=== PATIENT | female | born 1960 | race Native Hawaiian/Other Pacific Islander ===

== ENCOUNTER 2023-10-13 13:32 | Outpatient (REF) | payer OTHER, SELFPAY ==
--- NOTE | ~2023-10-13 | MM_ITS ---
EXAMINATION: MM SCREENING DIGITAL BREAST TOMOSYNTHESIS, BILATERAL CLINICAL INFORMATION: Screening. Asymptomatic. The patient is status post right breast surgery for benign disease. COMPARISON: Mammography: There are no prior mammograms available for comparison. TECHNIQUE: Digital breast tomosynthesis is performed in both the craniocaudal and mediolateral oblique views along with computer-aided detection (CAD). Synthesized 2D images are generated from the tomosynthesis. FINDINGS: The breasts are heterogeneously dense, which may obscure small masses (ACR BI-RADS breast composition Category c). There are no significant masses, abnormal calcifications, or other abnormalities. Postsurgical changes are present in the right breast. MM/MM tomosynthesis screening BI IMPRESSION: No mammographic evidence of malignancy. ASSESSMENT: BI-RADS BI-RADS 2 - Benign Findings RECOMMENDATION: Routine annual mammography screening. 1 year F/U This examination should not preclude the clinical evaluation of a suspicious palpable abnormality. This patient's information was entered into a reminder system with a target due date for their next mammogram.
== END 2023-10-13 13:33 | disposition home or self-care (01) ==
LOC: HO.MAMMO 13:32
PROVIDERS: PCP Internal Medicine; Visit Provider Internal Medicine
DX: Z12.31 Encounter for screening mammogram for malignant neoplasm of breast (principal)
CPT/HCPCS: 77063; 77067

== ENCOUNTER → 2023-10-13 14:00 | Outpatient (BNV) | payer OTHER, SELFPAY | PROVIDERS: PCP Internal Medicine; Visit Provider Radiology Diagnostic Radiology | DX: Z12.31 Encounter for screening mammogram for malignant neoplasm of breast (principal) | CPT/HCPCS: 77063; 77067 ==

== ENCOUNTER 2023-10-30 08:15 | Outpatient (REF) | payer OTHER, SELFPAY ==
[2023-10-30 08:49] LABS: MANUAL DIFF FLAG NO
[2023-10-30 09:42] LABS: Basophils Percent Auto 0.8 % (0-2); Eosinophils Absolute Auto 0.2 X10*3/uL (0.0-0.4); Eosinophils Percent Auto 3.1 % (0-4); Hematocrit 41.3 % (37.0-47.0); Hemoglobin 13.7 g/dl (12.0-16.0); Imm Gran Abs Auto 0.01 X10*3/uL (0.00-0.03); Imm Gran Pct Auto 0.2 % (0.0-0.4); Lymphocytes Absolute Auto 2.5 X10*3/uL (1.2-4.9); Lymphocytes Percent Auto 48.4 % (20-40); Mean Corpuscular HGB Conc 33.2 g/dl (31.0-35.0); Mean Corpuscular Hemoglobin 31.1 pg (27.0-33.0); Mean Corpuscular Volume 93.9 fL (80.0-98.0); Monocytes Absolute Auto 0.6 X10*3/uL (0.1-1.2); Neutrophils Absolute Auto 1.9 x10*3/uL (2.0-8.3); Neutrophils Percent Auto 36.5 % (45-73); Platelet Count 212 X10*3/uL (160-400); Red Cell Distribution Width 12.8 % (11.0-16.0); White Blood Count 5.2 X10*3/uL (4.8-10.8)
[2023-10-30 10:02] LABS: Carbamazepine Tegretol 6.6 mcg/mL (5.0-12.0)
[2023-10-30 10:11] LABS: Alanine Aminotransferase 24 U/L (0-31); Albumin Level 4.2 g/dL (3.5-5.0); Alkaline Phosphatase 87 U/L (39-117); Anion Gap 12 (12-20); Aspartate Amino Transferase 23 U/L (5-31); Bilirubin Total 0.2 mg/dL (0.0-1.0); Blood Urea Nitrogen 13 mg/dL (9-16); Calcium 8.9 mg/dL (8.4-10.2); Carbon Dioxide 24 mmol/L (22-29); Chloride 111 mmol/L (96-108); Cholesterol 143 mg/dL (<200); Estimated Glomerular Filt Rate > 60; Glucose Random 93 mg/dL (60-115); HDL Cholesterol 37 mg/dL (>40); LDL Cholesterol Calculated 74 mg/dL (<100); Potassium 4.1 mmol/L (3.3-5.1); Sodium 143 mmol/L (135-145); Total Protein 7.7 g/dL (6.5-8.0); Triglycerides 161 mg/dL (<150)
[2023-10-30 10:26] LABS: Thyroid Stimulating Hormone 1.03 uIU/mL (0.32-4.0)
== END 2023-10-30 08:16 | disposition home or self-care (01) ==
LOC: HO.LAB 08:15
PROVIDERS: PCP Internal Medicine; Visit Provider Internal Medicine
DX: E78.00 Pure hypercholesterolemia, unspecified (principal); G25.2 Other specified forms of tremor; G40.109 Localization-related (focal) (partial) symptomatic epilepsy and epileptic syndromes with simple partial seizures, not intractable, without status epilepticus; Z86.010 Personal history of colon polyps; Z86.73 Personal history of transient ischemic attack (TIA), and cerebral infarction without residual deficits
CPT/HCPCS: 36415; 80053; 80061; 80156; 84443; 85025

== ENCOUNTER 2024-11-30 07:55 | Outpatient (REF) | payer OTHER, SELFPAY | END 2024-11-30 07:56 | disposition home or self-care (01) | LOC: HO.MAMMO 07:55 | PROVIDERS: PCP Internal Medicine; Visit Provider Internal Medicine | DX: Z12.31 Encounter for screening mammogram for malignant neoplasm of breast (principal) | CPT/HCPCS: 77063; 77067 ==

== ENCOUNTER → 2024-11-30 08:15 | Outpatient (BNV) | payer OTHER, SELFPAY | PROVIDERS: PCP Internal Medicine; Visit Provider Internal Medicine | DX: Z12.31 Encounter for screening mammogram for malignant neoplasm of breast (principal) | CPT/HCPCS: 77063; 77067 ==

== ENCOUNTER 2024-12-16 11:06 | Outpatient (REF) | payer OTHER, SELFPAY ==
[2024-12-16 13:54] LABS: MANUAL DIFF FLAG NO
[2024-12-16 13:58] LABS: Hematocrit 40.6 % (37.0-47.0); Hemoglobin 13.6 g/dl (12.0-16.0); Imm Gran Abs Auto 0.02 X10*3/uL (0.00-0.03); Imm Gran Pct Auto 0.4 % (0.0-0.4); Lymphocytes Absolute Auto 2.5 X10*3/uL (1.2-4.9); Mean Corpuscular HGB Conc 33.5 g/dl (31.0-35.0); Mean Corpuscular Hemoglobin 30.8 pg (27.0-33.0); Mean Corpuscular Volume 92.1 fL (80.0-98.0); NRBC Abs Auto 0.000 X10*3/uL (0.0-0.012); NRBC Pct Auto 0.0 /100WBC (0.0-0.2); Platelet Count 205 X10*3/uL (160-400); Red Blood Count 4.41 X10*6/uL (4.20-5.50); White Blood Count 5.2 X10*3/uL (4.8-10.8)
[2024-12-16 14:24] LABS: Alanine Aminotransferase 28 U/L (0-31); Albumin Level 4.6 g/dL (3.5-5.0); Alkaline Phosphatase 95 U/L (39-117); Anion Gap 12 (12-20); Aspartate Amino Transferase 41 U/L (5-31); Blood Urea Nitrogen 16 mg/dL (9-16); Calcium 9.0 mg/dL (8.4-10.2); Carbon Dioxide 21 mmol/L (22-29); Chloride 111 mmol/L (96-108); Cholesterol 145 mg/dL (<200); Estimated Glomerular Filt Rate > 60; HDL Cholesterol 39 mg/dL (>40); Potassium 4.3 mmol/L (3.3-5.1); Sodium 140 mmol/L (135-145); Total Protein 8.2 g/dL (6.5-8.0); Triglycerides 168 mg/dL (<150)
[2024-12-16 14:32] LABS: Thyroid Stimulating Hormone 0.89 uIU/mL (0.32-4.0)
== END 2024-12-16 11:07 | disposition home or self-care (01) ==
LOC: HO.HMGCLDS 11:06
PROVIDERS: PCP Internal Medicine; Visit Provider Internal Medicine
DX: Z00.00 Encounter for general adult medical examination without abnormal findings (principal); G25.0 Essential tremor; G40.109 Localization-related (focal) (partial) symptomatic epilepsy and epileptic syndromes with simple partial seizures, not intractable, without status epilepticus; E78.00 Pure hypercholesterolemia, unspecified
CPT/HCPCS: 36415; 80053; 80061; 84443; 85025

== ENCOUNTER 2025-01-01 09:35 | Emergency (ER) | payer OTHER, SELFPAY ==
[2025-01-01] VITALS (7 sets, daily range): BP systolic 97–151; BP diastolic 56–71; PULSE 62–97; RESP 12–16; TEMP 36.5–36.9; O2SAT 94–98; BMI 27.1
--- NOTE | ~2025-01-01 | CT_ITS ---
EXAMINATION: CT ANGIOGRAM HEAD AND NECK CLINICAL INFORMATION: Headache,? Aneurysm rupture . History of left paraclinoid aneurysm clipping COMPARISON: None available. TECHNIQUE: Noncontrast axial imaging of the head was performed. This was followed by test bolus sequences and head and neck intravenous bolus administration mL of . Helical imaging was performed in the axial plane from the aortic arch to the skull vertex. A [address] head was also obtained. The data was processed at the medical technologist blood bank's workstation for generation of MIP sequences. Angled MIPs and volume rendered reformatted images were also generated at an offline 3D workstation. Stenoses are assessed in accordance with NASCET criteria unless otherwise indicated. This CT examination was performed using dose optimization techniques as appropriate, variously including the following: *Automated exposure control *Adjustment of mA and/or kV according to patient size (this includes techniques or standardized protocols for targeted exams where dose is matched to indication/reason for exam; i.e. extremities or head) *Use of iterative reconstruction technique FINDINGS: NONCONTRAST HEAD CT: There are 2 left paraclinoid aneurysm clips in place. There is associated streak artifact. There is encephalomalacia in the left anterior temporal lobe extending into the left subinsular region and involving the anterior left frontal operculum. There has been a left pterional craniotomy. Mild ex vacuo dilatation of the left lateral ventricle. Ventricles, sulci, and cisterns are otherwise normal in size and configuration for patient age. No hydrocephalus. No midline shift. There is no evidence of intracranial hemorrhage or extra-axial fluid collection. There is no mass effect, or edema. No CT evidence of acute territorial infarct. Globes and orbital contents image normally. No extracranial soft tissue abnormalities. The paranasal sinuses, mastoid air cells, and tympanic cavities are normally aerated. No suspicious bony abnormalities. Severe degenerative changes in the left TM joint noted. NECK CTA: Motion artifact in the mid aspect of the scan severely limits interpretation of the distal common carotid arteries, and proximal ICAs. -AORTIC ARCH: Normal in caliber. Mild atheromatous calcification. Three-vessel branching pattern. -GREAT VESSEL ORIGINS: Widely patent. No stenosis. -RIGHT COMMON CAROTID ARTERY: The proximal and mid aspects are normal in course and caliber. Cannot evaluate the distal aspect due to motion. -CERVICAL RIGHT INTERNAL CAROTID ARTERY: Cannot evaluate the carotid bulb or bifurcation due to motion artifact. The distal ICA is normal in caliber into the skull base. -LEFT COMMON CAROTID ARTERY: The proximal and mid aspects are normal in course and caliber. Cannot evaluate the distal aspect due to motion. -CERVICAL LEFT INTERNAL CAROTID ARTERY: Cannot evaluate the carotid bulb bifurcation due to motion artifact. Suspect there is high-grade stenosis of the distal aspect of the ICA is small narrowed, likely secondary to adaptive narrowing. -CERVICAL RIGHT VERTEBRAL ARTERY: Codominant. Normal in course and caliber into the skull base. -CERVICAL LEFT VERTEBRAL ARTERY: Codominant. Normal in course and caliber into the skull base. OTHER, SOFT TISSUES: -No lymphadenopathy or mass. No abnormal fluid collection or soft tissue swelling. -Globally enlarged thyroid with a right isthmus nodule measuring 2.0 x 1.5 cm in axial plane. -Imaged superior mediastinal structures normal. -Imaged lung apices clear. CTA OF THE BRAIN: -INTRACRANIAL INTERNAL CAROTID ARTERIES: The right is normal. There is mild atheromatous plaque. There is no right stenosis stenosis. The left is diminutive, likely secondary to a more proximal stenosis. There is atheromatous plaque in the carotid siphon, and cannot evaluate the left carotid terminus due to streak artifact from aneurysm clips. -RIGHT ANTERIOR CEREBRAL ARTERY: Normal A1 segment.. Normal arborization of the distal segments. -LEFT ANTERIOR CEREBRAL ARTERY: Normal A1 segment.. Normal arborization of the distal segments. -ANTERIOR COMMUNICATING ARTERY: Normal. -RIGHT MIDDLE CEREBRAL ARTERY: Normal M1 segment of the MCA without focal stenosis or occlusion. Normal arborization of the distal segments. -LEFT MIDDLE CEREBRAL ARTERY: Within confines of streak artifact, normal M1 segment without focal stenosis or occlusion. Cannot evaluate for residual aneurysm due to streak artifact. Normal arborization of the distal segments. -RIGHT VERTEBRAL ARTERY V4: Normal in course and caliber. Normal PICA branch. -LEFT VERTEBRAL ARTERY V4: Normal in course and caliber. Normal PICA branch. -BASILAR ARTERY: Normal without focal stenosis or occlusion. Normal appearance of the proximal superior cerebellar arteries. Normal basilar tip. -RIGHT POSTERIOR CEREBRAL ARTERY: Normal P1 segment. Normal opacification of the distal TOBACCO WETTER segments. -LEFT POSTERIOR CEREBRAL ARTERY: Normal P1 segment. Normal opacification of the distal TOBACCO WETTER segments. -POSTERIOR COMMUNICATING ARTERIES: Both are not well seen. Normal opacification of the superior sagittal, straight, transverse, and sigmoid sinuses. No venous thrombosis. No space-occupying hemorrhage or definite evolving infarct. CT/CT angio head neck IMPRESSION: NONCONTRAST HEAD CT: 1. No acute intracranial abnormalities. 2. Left paraclinoid aneurysm clips and remote left pterional craniotomy. 3. Cystic encephalomalacia in the anterior left temporal lobe, left subinsular region, and anterior left frontal operculum. CTA NECK: 1. Extremely limited in the mid aspect of the scan due to motion artifact. Cannot evaluate the distal CCAs or proximal ICAs, nor the bifurcations. Suspect there is a significant/high-grade stenosis in the LEFT ICA at the origin as there is adaptive narrowing of the distal ICA. 2. The proximal and mid CCAs are patent. 3. The distal right ICA is patent into the skull base. 4. Right isthmus thyroid nodule measuring 2.0 x 1.5 cm, with global thyroid enlargement. CTA HEAD: 1. Limited due to streak artifact from left paraclinoid aneurysm clips. Cannot evaluate the left MCA M1 segment, nor the left carotid terminus. The intracranial left ICA is diminutive in appearance, possibly due to a more proximal stenosis as discussed above. 2. Allowing for artifact, the left MCA and bifurcation appear grossly patent. 3. Remainder of the examination demonstrates no evidence of high-grade stenosis, occlusion, aneurysm, or dissection of the major intracranial arterial vasculature. 4. Major cortical and dural venous sinuses are patent. Electronically signed by: Slava Carmichael MD 01/01/2025 01:02 PM EDT
--- NOTE | 2025-01-01 10:18 | ECG_ITS ---
Test Reason : HEADACHE Blood Pressure : */* mmHG Vent. Rate : 80 BPM Atrial Rate : 80 BPM P-R Int : 202 ms QRS Dur : 66 ms QT Int : 392 ms P-R-T Axes : 61 -21 15 degrees QTcB Int : 452 ms Normal sinus rhythm Possible Left atrial enlargement Borderline ECG No previous ECGs available Referred By: Marco Cruz Electronically Signed By: Perez Andino
[2025-01-01 10:55] LABS: MANUAL DIFF FLAG NO
[2025-01-01 10:56] LABS: Hematocrit 41.7 % (37.0-47.0); Hemoglobin 13.7 g/dl (12.0-16.0); Imm Gran Abs Auto 0.02 X10*3/uL (0.00-0.03); Imm Gran Pct Auto 0.4 % (0.0-0.4); Lymphocytes Absolute Auto 2.0 X10*3/uL (1.2-4.9); Mean Corpuscular HGB Conc 32.9 g/dl (31.0-35.0); Mean Corpuscular Hemoglobin 30.6 pg (27.0-33.0); Mean Corpuscular Volume 93.3 fL (80.0-98.0); NRBC Abs Auto 0.000 X10*3/uL (0.0-0.012); NRBC Pct Auto 0.0 /100WBC (0.0-0.2); Platelet Count 191 X10*3/uL (160-400); Red Blood Count 4.47 X10*6/uL (4.20-5.50); White Blood Count 5.1 X10*3/uL (4.8-10.8)
[2025-01-01 11:03] LABS: INTERNATIONAL NORM RATIO 1.0 (0.9-1.1); Prothrombin Time 11.4 SEC (10.9-12.4)
[2025-01-01 11:05] LABS: Partial Thromboplastin Time 28.7 SEC (26.7-34.1)
--- NOTE | 2025-01-01 11:10 | ED_ITS ---
HPI - General Adult General Chief complaint: Headache Stated complaint: Headache Time Seen by Provider: 01/01/25 10:00 Source: patient Mode of arrival: ambulatory Limitations: no limitations History of Present Illness ED Provider: Marco Cruz HPI narrative: 64-year-old female history of left aneurysm rupture repair that required surgery and migraine presents to the ED for right-sided posterior ( neck) and anterior headache since this morning at 05:00. 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 patient denies any fever, chills, nausea, vomiting, or visual changes. Patient has chronic right-sided weakness since having stroke due to right-sided aneurysm rupture repair. Patient denies any chest pain shortness of breath or dizziness. Related Data Previous Rx's ?Medication ?Instructions ?Recorded oxycodone 5 mg tablet 5 mg PO TID PRN pain #9 tabs 01/01/25 Allergies Allergy/AdvReac Type Severity Reaction Status Date / Time aspirin Allergy Hives Verified 01/01/25 09:45 Review of Systems 2 Review of Systems: left-sided posterior anterior headache Yes all other systems are reviewed and are negative Physical Exam ED Vital Signs: Vital Signs - 24 hr 01/01/25 09:43 01/01/25 10:58 01/01/25 10:58 Temperature 98.0 F 98.4 F Pulse Rate 97 90 Respiratory Rate 16 15 15 Blood Pressure 151/70 H 126/65 Pulse Oximetry 97 94 Oxygen Delivery Method Room Air Room Air 01/01/25 12:30 01/01/25 13:27 01/01/25 14:07 Temperature 97.7 F Pulse Rate 77 72 65 Respiratory Rate 12 16 13 Blood Pressure 97/57 L 107/71 97/57 L Pulse Oximetry 98 94 94 Oxygen Delivery Method Room Air Room Air Room Air 01/01/25 15:03 01/01/25 15:31 Temperature 98.2 F 98.2 F Pulse Rate 62 62 Respiratory Rate 14 14 Blood Pressure 111/56 L 111/56 L Pulse Oximetry 96 96 Oxygen Delivery Method Room Air Room Air BMI result Body Mass Index 27.1 Const General: cooperative, healthy appearing, comfortable, no acute distress, well developed, alert, awake and Physically active HENOH Head: Yes normal to inspection, Yes No palpable skull fracture present, Yes normocephalic and Yes atraumatic Ears: hearing grossly normal bilaterally, external ears normal, TM's normal bilaterally, TM normal on the right, TM normal on the left, EAC's normal, mastoids normal and no periauricular adenopathy Throat: Yes posterior oropharynx normal, Yes tonsils normal and Yes uvula midline Eyes General: appearance normal, both eyes and all related structures Neck Neck: Yes normal visual inspection, Yes full ROM, Yes no lymphadenopathy, Yes no meningeal signs, Yes trachea midline, Yes supple, No anterior neck swelling and No tender Chest Chest palpation & inspection: normal inspection of the chest and normal palpation of entire chest wall Resp Effort & Inspection: normal respiratory effort and able to speak in complete sentences Auscultation: clear to auscultation bilaterally Cardio Jugular venous distension: no JVD Heart sounds: S1 normal heart sound present and S2 normal heart sound present GI Inspection: Yes normal to inspection Palpation (GI): Soft to palpation, not firm, nontender, no guarding and not rigid General: Yes no CVA tenderness Back/Spine/Pelvis Back: no CVA tenderness and No back tenderness Skin General skin exam: no rashes or lesions noted, elasticity normal and turgor normal Neuro Other: chronic right-sided weakness. Negative for facial droop, slurred speech, facial droop, or paralysis of extremities. General: no meningeal signs Extrem General: Yes normal to inspection, Yes full ROM and Yes capillary refill normal Psych Appearance: grossly normal, well kempt and not disheveled NIH Stroke Scale Internal: Initial- Upon Arrival Level of Consciousness: Alert Level of Consciousness Questions: Answers both questions correctly Level of Consciousness Commands: Performs both tasks correctly Best Gaze: Normal Visual: No visual loss Facial Palsy: Normal Motor Arm (Right): No drift Motor Arm (Left): No drift Motor Leg (Right): No drift Motor Leg (Left): No drift Limb Ataxia: Absent Sensory: Normal Best Language: No aphasia Dysarthia: Normal Extinction and Inattention: No abnormality Score: 0 Medications Administered Discontinued Medications Generic Name Dose Route Start Last Admin Trade Name Freq PRN Reason Stop Dose Admin Sodium Chloride 1,000 mls @ 999 mls/hr 01/01/25 13:12 01/01/25 15:03 Ns IV 01/01/25 14:12 Infused .Q1H1M STA Infusion Iohexol 100 ml 01/01/25 12:27 01/01/25 12:28 Iohexol 350 Mg/Ml 100 Ml Infus..Btl IV 01/01/25 12:28 70 ml ONCE ONE Administration Metoclopramide HCl 10 mg 01/01/25 10:27 01/01/25 10:58 Metoclopramide Hcl 10 Mg/2 Ml Vial IVPUSH 01/01/25 10:28 10 mg ONCE ONE Administration Morphine Sulfate 4 mg 01/01/25 10:20 01/01/25 10:58 Morphine Sulfate 4 Mg/Ml Cartridge IVPUSH 01/01/25 10:21 4 mg ONCE ONE Administration Protocol Medical Decision Making Medical Decision Making [facility] Narrative: 64-year-old female presents to the ED for right sided anterior ( parietal/frontal) and posterior ( headache_ headache that began as a 05:00 this morning without any neuro deficits. Patient denies any visual changes. Do patient has allergy to aspirin can get NSAIDs including Motrin Toradol. head CTA scan will be ordered to rule out rupture. basic labs ordered. Morphine Reglan ordered 3:00pm: Patient is sleeping comfortably in bed not in any distress. Patient feels better. Head CTA negative for bleeding aneurysm or signs of stroke. Patient has no new neuro deficits. no indication for LP or MRI. Patient had surgery and interventions at [facility]. Patient has a appointment with neurology this January 11. Patient informed to call him for earlier appointment. Not suspecting meningitis, cephalitis, temporal arteritis, glaucoma, posterior cerebellar stroke, stroke, or any other life-threatening etiology. EKG negative STEMI. patient is alert oriented x3 Differential Diagnosis Differential Diagnoses: The differential diagnosis associated with the presentation includes (Aneurysm rupture, brain bleed, stroke, GA) Admission/Observation Consideration of admission/observation: Escalation of care including admission/observation considered Lab Data [facility] Lab Attestation statement: I reviewed the patient's lab results. 01/01/25 10:49 01/01/25 10:49 Labs: Lab Results 01/01/25 01/01/25 Range/Units 10:49 14:12 WBC 5.1 (4.8-10.8) X10*3/uL RBC 4.47 (4.20-5.50) X10*6/uL Hgb 13.7 (12.0-16.0) g/dl Hct 41.7 (37.0-47.0) % MCV 93.3 (80.0-98.0) fL MCH 30.6 (27.0-33.0) pg MCHC 32.9 (31.0-35.0) g/dl RDW 13.2 (11.0-16.0) % Plt Count 191 (160-400) X10*3/uL MPV 8.7 L (9.4-12.3) fL Immature Gran % (Auto) 0.4 (0.0-0.4) % Neut % (Auto) 45.1 (45-73) % Lymph % (Auto) 39.9 (20-40) % [place] % (Auto) 11.4 H (2-11) % Eos % (Auto) 2.2 (0-4) % Baso % (Auto) 1.0 (0-2) % Lymph # (Auto) 2.0 (1.2-4.9) X10*3/uL [place] # (Auto) 0.6 (0.1-1.2) X10*3/uL Eos # (Auto) 0.1 (0.0-0.4) X10*3/uL Baso # (Auto) 0.1 (0.0-0.2) X10*3/uL Abs Immat Gran (auto) 0.02 (0.00-0.03) X10*3/uL Absolute Neuts (auto) 2.3 (2.0-8.3) x10*3/uL Absolute Nucleated RBC 0.000 (0.0-0.012) X10*3/uL Nucleated RBC % (auto) 0.0 (0.0-0.2) /100WBC PT 11.4 (10.9-12.4) SEC INR 1.0 (0.9-1.1) APTT 28.7 (26.7-34.1) SEC Sodium 144 (135-145) mmol/L Potassium 4.1 (3.3-5.1) mmol/L Chloride 109 H (96-108) mmol/L Carbon Dioxide 29 (22-29) mmol/L Anion Gap 10 L (12-20) BUN 15 (9-16) mg/dL Creatinine 0.73 (0.5-1.4) mg/dL Estim Creat Clear Calc 77.5 Estimated GFR > 60 Random Glucose 108 (60-115) mg/dL Calcium 9.7 D (8.4-10.2) mg/dL Total Bilirubin 0.2 (0.0-1.0) mg/dL AST 30 (5-31) U/L ALT 29 (0-31) U/L Alkaline Phosphatase 90 (39-117) U/L Troponin I High Sens < 2.7 10.2 D (<3.5-17.0) ng/L Total Protein 7.7 (6.5-8.0) g/dL Albumin 4.4 (3.5-5.0) g/dL Independent Interpretation I performed an independent interpretation of an: EKG (NOrmal Sinus) and CT Scan Radiology Impression Discussion of test interpretation with radiology: I have reviewed the radiologist's reading. Prescription Management I considered prescription management with: Pain Medication Discharge Plan Discharge Clinical Impression: Headache Patient Disposition: Home, Self-Care Instructions: General Headache (ED) Additional Instructions: Recommend follow-up with primary care provider and neurologist. Return to the ED immediately for severe headache, slurred speech, facial droop, nausea, vomiting, weakness, dizziness, chest pain, shortness of breath, loss of vision, neck stiffness, fever chills, or any other concerning symptoms. Continue taking Tylenol for pain relief with oxycodone. [facility] [phone], [address] [place] [address] [place] [address] Prescriptions: New oxycodone 5 mg tablet 5 mg PO TID PRN (Reason: pain) Qty: 9 0RF Rx Instructions: Partial Fill upon patient request. Referrals: Tracy Keating MD [Primary Care Provider, Internal Medicine] - 2 days Referral Note: Headache Clinical Impression: Headache Jessy Haywood MD [Physician, Neurology] - 2 days Referral Note: Headache. History of ruptured brain aneurysm. Head CTA negative for any new aneurysm. Clinical Impression: Headache Interventions: ED Discharge Assessment Last Done: 01/01/25 15:31 Discharge Date/Time: 01/01/25 15:35 Print Language: Mongolian
[2025-01-01 11:11] LABS: Alanine Aminotransferase 29 U/L (0-31); Albumin Level 4.4 g/dL (3.5-5.0); Alkaline Phosphatase 90 U/L (39-117); Anion Gap 10 (12-20); Aspartate Amino Transferase 30 U/L (5-31); Blood Urea Nitrogen 15 mg/dL (9-16); Calcium 9.7 mg/dL (8.4-10.2); Carbon Dioxide 29 mmol/L (22-29); Chloride 109 mmol/L (96-108); Creatinine Clr Calc Pharmacy 77.5; Estimated Glomerular Filt Rate > 60; Potassium 4.1 mmol/L (3.3-5.1); Sodium 144 mmol/L (135-145); Total Protein 7.7 g/dL (6.5-8.0)
[2025-01-01 11:24] LABS: Troponin-I High Sensitivity < 2.7 ng/L (<3.5-17.0)
[2025-01-01] MEDS: iohexoL 350 MG/ML 100 ML INFUS..BTL IV (12:28)
[2025-01-01 14:42] LABS: Troponin-I High Sensitivity 10.2 ng/L (<3.5-17.0)
== END 2025-01-01 15:35 | disposition home or self-care (01) ==
PROVIDERS: Physician Assistant; Emergency Provider Emergency Medicine; PCP Internal Medicine
DX: R51.9 Headache, unspecified (principal); I69.351 Hemiplegia and hemiparesis following cerebral infarction affecting right dominant side; Z79.899 Other long term (current) drug therapy
CPT/HCPCS: 36415; 70496; 70498; 80053; 84484; 85025; 85610; 85730; 93005; 96361; 96374; 96375; 99284; 99285; J2270; J2765; Q9967

== ENCOUNTER → 2025-01-01 10:18 | Outpatient (BNV) | payer OTHER, SELFPAY | PROVIDERS: Emergency Provider Emergency Medicine; PCP Internal Medicine; Visit Provider Internal Medicine Cardiovascular Disease | DX: R51.9 Headache, unspecified (principal) | CPT/HCPCS: 93010 ==

== ENCOUNTER → 2025-01-01 10:18 | Outpatient (BNV) | payer OTHER, SELFPAY | PROVIDERS: Emergency Provider Emergency Medicine; PCP Internal Medicine; Visit Provider Radiology Diagnostic Radiology | DX: I72.0 Aneurysm of carotid artery (principal) | CPT/HCPCS: 70496; 70498 ==

== ENCOUNTER 2025-01-11 14:26 | Outpatient (AMB) | payer OTHER, SELFPAY ==
--- NOTE | 2025-01-11 14:34 | MHC.OFFVIS ---
Intake Visit Reasons: ENP-Seizure Disorder, Tremors Allergies bee pollen (bee stings) Allergy (Unknown, Verified 01/10/25 12:10) Unknown aspirin Allergy (Verified 01/01/25 09:45) Hives HPI Comments Details: The patient is a 64-year-old female presenting with tremor and recurrent headaches. 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 The tremors, described as involuntary and affecting her right hand, began a year ago, differing from her post-surgical state. No syncope or loss of consciousness accompanying the tremor has been reported. The patient also describes her right hand sometimes feeling cold. She reports prior seizure activity, most prominently around five years ago, with no current seizure episodes. Her recurrent headaches have been occurring sporadically and are self-managed by rest. [facility] Medical History (Updated 01/11/25 @ 14:46 by Jessy Haywood MD) Tremor Seizure disorder Review of Systems Const Details: - Neurological: Reports headaches, tremor; Denies current seizures - Musculoskeletal: Reports trembling of the right hand - General: Reports headache Physical Exam Neuro Other: Mental Status: Alert and oriented to person, place, and time. Normal attention. Normal spontaneous speech, fluency, and comprehension. No obvious issues with mood and memory. Affect is appropriate. Cranial Nerves: CN II: Visual aguilera full to confrontation, visual acuity intact. CN III, IV, : Pupils equal, round, reactive to light and accommodation. Extraocular movements are normal. CN V: Facial sensation is normal. CN VII: Facial movements symmetrical. CN VIII: Hearing intact to bedside conversation is normal. CN IX, X: Palate elevates symmetrically. CN XI: Shoulder shrug and head turn symmetrical. CN XII: Tongue midline without atrophy or fasciculations. Motor: Bulk and tone normal in all extremities. No significant muscle weakness in arms and legs. No drift. Reflexes: Deep tendon reflexes 2+ and symmetric. Plantar response down-going bilaterally. Coordination: [id number] and [id number] testing normal. No dysmetria. Gait and Station: No obvious gait abnormality. No ataxia or instability. Extrapyramidal: Full facial expressions and blinking. No rigidity. Mild right hand resting tremor. Decreased right arm swing while walking. Speech: Normal; no dysarthria or tremor. Assessment & Plan Assessment & Plan (1) S/P cerebral aneurysm repair: Comment: CTA brain and neck at [facility] [place] in Dec 2024: s/p craniotomy, left temporal encephalomalacia, left supraclinoid area aneurysm clip artifact Code(s): Z98.890 - Other specified postprocedural states; Z86.79 - Personal history of other diseases of the circulatory system Category: Surgical (2) Migraine: Code(s): G43.909 - Migraine, unspecified, not intractable, without status migrainosus Category: Medical Qualifiers: Migraine type: migraine (< 15 days per month) without aura Status migrainosus presence: without status migrainosus Intractability: not intractable Qualified Code(s): G43.009 - Migraine without aura, not intractable, without status migrainosus (3) Seizure disorder: Code(s): G40.909 - Epilepsy, unspecified, not intractable, without status epilepticus Category: Medical Plan Impression: a: Right hand resting tremor, mild, chronic. b: Mild migraine type headaches c: Probably seizure disorder d: Remote h/o left supraclinoid cerebral aneurysm clipping with resutling left temporal encephalomalacia Rec: a; EEG b: Tylenol PRN Orders: Orders EEG electroencephalogram Today G40.909 - Epilepsy, unspecified, not intractable, without status epilepticus Coding Level of Care Code New Pt Level 5 (32652) Diagnoses S/P cerebral aneurysm repair Z98.890; Z86.79 Migraine without aura and without status migrainosus, not intractable G43.009 Migraine type: migraine (< 15 days per month) without aura Status migrainosus presence: without status migrainosus Intractability: not intractable Seizure disorder G40.909
== END 2025-01-11 14:55 | disposition home or self-care (01) ==
LOC: HO.HSM 14:26
PROVIDERS: Visit Provider Psychiatry & Neurology Neurology
DX: G40.909 Epilepsy, unspecified, not intractable, without status epilepticus (principal); G43.009 Migraine without aura, not intractable, without status migrainosus; Z98.890 Other specified postprocedural states; Z86.79 Personal history of other diseases of the circulatory system
CPT/HCPCS: 99203

== ENCOUNTER → 2025-01-11 14:26 | Outpatient (BNVA) | payer OTHER, SELFPAY | PROVIDERS: Visit Provider Psychiatry & Neurology Neurology | DX: G43.009 Migraine without aura, not intractable, without status migrainosus (principal); G40.909 Epilepsy, unspecified, not intractable, without status epilepticus; Z98.890 Other specified postprocedural states | CPT/HCPCS: 99202 ==

== ENCOUNTER 2025-01-29 15:02 | Outpatient (REF) | payer OTHER, SELFPAY ==
--- NOTE | 2025-01-29 16:31 | EEG_ITS ---
Reason for Exam: Epilepsy G40.909 Roomed Performed:?402 History: tremors, seizures, surgically clipped left supraclenide aneurysm - Patient reported involuntary tremors in her right hand. Also recurrent headaches that are suporadic. Patients last seizure was in 2005. Last Meal: 2p today Medication: no list available Technical description Photic stimulation: completed Hyperventilation:?omitted Behavioral state: cooperative, sleepy State of Consciousness: awake and sleep Skull defect: none Sedation: none Handedness: left Duration of study:?31 min 33 sec Description: This is a 16 channel EEG with an EKG lead. Patient is reported awake during the tracing. Background EEG rhythm is is 10-12 hertz 5-100 microvolt posteriorly and lower amplitude fast anteriorly. Intermittently, left hemispheric especially temporal area revealed sharply controlled theta range discharges with at least 1 phase reversal at T3. Photic stimulation does not produce any significant driving. Hyperventilation was not performed. Cardiac lead does not reveal any significant abnormality. Impression: Mildly abnormal EEG suggestive of left temporal irritability. MTDD
== END 2025-01-29 15:03 | disposition home or self-care (01) ==
LOC: HO.NEURO 15:02
PROVIDERS: PCP Internal Medicine; Visit Provider Psychiatry & Neurology Neurology
DX: G40.909 Epilepsy, unspecified, not intractable, without status epilepticus (principal)
CPT/HCPCS: 95819

== ENCOUNTER → 2025-01-29 16:31 | Outpatient (BNV) | payer OTHER, SELFPAY | PROVIDERS: PCP Internal Medicine; Visit Provider Psychiatry & Neurology Neurology | DX: G40.909 Epilepsy, unspecified, not intractable, without status epilepticus (principal) | CPT/HCPCS: 95819 ==

== ENCOUNTER 2025-02-20 14:26 | Outpatient (AMB) | payer OTHER, SELFPAY ==
--- NOTE | 2025-02-20 14:41 | MHC.OFFVIS ---
Intake Visit Reasons: RESULTS Allergies bee pollen (bee stings) Allergy (Unknown, Verified 01/10/25 12:10) Unknown aspirin Allergy (Verified 01/01/25 09:45) Hives HPI Comments Details: 64 years old woman with remote history of left supraclinoid aneurysm clipping, migraine, hand tremor, and seizure disorder. She is presenting with tremor and recurrent headaches. 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 The tremors, described as involuntary and affecting her right hand, began a year ago, differing from her post-surgical state. No syncope or loss of consciousness accompanying the tremor has been reported. The patient also describes her right hand sometimes feeling cold. She reports prior seizure activity, most prominently around five years ago, with no current seizure episodes. Her recurrent headaches have been occurring sporadically and are self-managed by rest. [facility] Medical History (Updated 02/20/25 @ 14:44 by Jessy Haywood MD) Tremor Seizure disorder Review of Systems Narrative - Neurological: Reports headaches, tremor; Denies current seizures - Musculoskeletal: Reports trembling of the right hand - General: Reports headache Physical Exam Neuro Other: Mental Status: Alert and oriented to person, place, and time. Normal attention. Normal spontaneous speech, fluency, and comprehension. Cranial Nerves: CN II: Visual aguilera full to confrontation, visual acuity intact. CN III, IV, : Pupils equal, round, reactive to light and accommodation. Extraocular movements are normal. CN V: Facial sensation is normal. CN VII: Facial movements symmetrical. CN VIII: Hearing intact to bedside conversation is normal. CN IX, X: Palate elevates symmetrically. CN XI: Shoulder shrug and head turn symmetrical. CN XII: Tongue midline without atrophy or fasciculations. Extrapyramidal: Mild intermittent right hand and had tremor. Speech: Normal; no dysarthria or tremor. Assessment & Plan Assessment & Plan (1) Seizure disorder: Comment: [place] at [facility] [place] [facility] [place]: L temp sharps Code(s): G40.909 - Epilepsy, unspecified, not intractable, without status epilepticus Category: Medical (2) S/P cerebral aneurysm repair: Comment: CTA brain and neck [place] [facility] [place] [facility] [place]: s/p craniotomy, left temporal encephalomalacia, left supraclinoid area aneurysm clip artifact Code(s): Z98.890 - Other specified postprocedural states; Z86.79 - Personal history of other diseases of the circulatory system Category: Surgical (3) Migraine: Code(s): G43.909 - Migraine, unspecified, not intractable, without status migrainosus Category: Medical Qualifiers: Migraine type: migraine (< 15 days per month) without aura Status migrainosus presence: without status migrainosus Intractability: not intractable Qualified Code(s): G43.009 - Migraine without aura, not intractable, without status migrainosus (4) Tremor: Code(s): R25.1 - Tremor, unspecified Category: Medical Plan Impression: a: Right hand and head resting tremor, mild, chronic. b: Mild migraine type headaches c: Probably seizure disorder d: Remote h/o left supraclinoid cerebral aneurysm clipping with resulting left temporal encephalomalacia Rec: a; Primidone 50mg bid for tremor and as antiepileptic b: Continue Carbatrol 200mg bid b: Tylenol PRN Medications: New primidone 50 mg PO BID 180 tabs 0RF Changed From carbamazepine ER (Carbatrol) PO To carbamazepine ER (Carbatrol) 200 mg PO BID 180 caps 0RF Coding Level of Care Code Est Pt Level 3 (30635) Global (13223) Diagnoses Seizure disorder G40.909 S/P cerebral aneurysm repair Z98.890; Z86.79 Migraine without aura and without status migrainosus, not intractable G43.009 Migraine type: migraine (< 15 days per month) without aura Status migrainosus presence: without status migrainosus Intractability: not intractable Tremor R25.1 Time Spent (min) 30
== END 2025-02-20 14:51 | disposition home or self-care (01) ==
LOC: HO.HSM 14:27
PROVIDERS: PCP Internal Medicine; Visit Provider Psychiatry & Neurology Neurology
DX: G40.909 Epilepsy, unspecified, not intractable, without status epilepticus (principal); Z98.890 Other specified postprocedural states; Z86.79 Personal history of other diseases of the circulatory system; G43.009 Migraine without aura, not intractable, without status migrainosus; R25.1 Tremor, unspecified
CPT/HCPCS: 99213

== ENCOUNTER → 2025-02-20 14:26 | Outpatient (BNVA) | payer OTHER, SELFPAY | PROVIDERS: PCP Internal Medicine; Visit Provider Psychiatry & Neurology Neurology | DX: G40.909 Epilepsy, unspecified, not intractable, without status epilepticus (principal); G43.009 Migraine without aura, not intractable, without status migrainosus; Z86.79 Personal history of other diseases of the circulatory system; R25.1 Tremor, unspecified | CPT/HCPCS: 99212 ==